=== PATIENT | female | born 1965 | race Asian ===

== ENCOUNTER → 2016-07-06 | Outpatient (CLI) | payer MEDICAID | LOC: FIMAGING 11:59 | PROVIDERS: ATTEND Nurse Practitioner Women's Health | DX: Z12.31 Encounter for screening mammogram for malignant neoplasm of breast (principal) | CPT/HCPCS: G0202 ==

== ENCOUNTER 2016-09-11 16:02 | Emergency (ER) | payer MEDICAID ==
[2016-09-11 16:06] VITALS: RESP 16
--- NOTE | 2016-09-11 16:16 | CPEKG ---
Heart Rate: 97 RR Interval: 619 P-R Interval: 176 QRSD Interval: 92 QT Interval: 348 QTC Interval: 442 P [place]: 42 QRS [place]: 32 T Wave [place]: 13 EKG Severity - NORMAL ECG - EKG Impression: SINUS RHYTHM Electronically Signed By: Sweta Singh 11-Sep-2016 21:08:37
--- NOTE | 2016-09-11 16:22 | EDPHY ---
H & P Time Seen by Provider: 09/11/16 16:11 HPI/ROS: CHIEF COMPLAINT: palpitations HISTORY OF PRESENT ILLNESS: The patient is a 51-year-old female presenting with palpitations that started this morning. The patient has experienced three episodes of rapid heart rate today. The first episode occurred while the patient was driving, it lasted for about 1 minute and resolved on its own. The other two episodes developed while at rest. All three episodes started suddenly and stopped suddenly. The patient has never experienced a rapid heart rate in the past. She states it feels like she just ran really fast. She denies chest pain, nausea, or diaphoresis. She notes some weight gain recently. No changes in medications. She has a slight cough that has been ongoing for a few months. REVIEW OF SYSTEMS: A comprehensive 10 point review of systems is otherwise negative aside from elements mentioned in the history of present illness. Past Medical/Surgical History: Diabetes Social History: Nonsmoker. No alcohol. Smoking Status: Never smoked Physical Exam: General Appearance: Alert, pleasant Eyes: Pupils equal and round, no conjunctival pallor or injection ENT, Mouth: Mucous membranes moist Neck: Normal inspection Respiratory: Lungs are clear to auscultation Cardiovascular: Regular rate and rhythm, no murmur Gastrointestinal: Abdomen is soft and non-tender Neurological: A&O, nonfocal, normal gait Skin: Warm and dry, no rash Extremities: Nontender, no pedal edema Psychiatric: Mood and affect normal Constitutional: Initial Vital Signs Temperature (C) 36.8 C 09/11/16 16:04 Heart Rate 92 09/11/16 16:04 Respiratory Rate 16 09/11/16 16:04 Blood Pressure 142/88 H 09/11/16 16:04 O2 Sat (%) 94 09/11/16 16:04 O2 Delivery Mode Room Air Allergies/Adverse Reactions: No Known Allergies Allergy (Verified 01/09/16 19:18) Home Medications: Medication Instructions Recorded Levothyroxine [Synthroid 50 mcg 50 mcg PO DAILY06 07/11/11 (RX)] Hydrocodone/APAP 5/325 [[place] 1 - 2 tab PO Q4 PRN #10 tab 08/18/13 5/325 (RX)] Ondansetron Odt [Zofran Odt 4 mg 4 mg PO Q4 PRN #10 tab 08/18/13 (RX)] Medical Decision Making - Diagnostics EKG Interpretation: EKG interpreted by me reveals normal sinus rhythm, normal axis, normal intervals , ST and T segments normal. Interpretation: normal EKG Imaging Results: Chest x-ray independently reviewed by me reveals no acute disease. Imaging: Discussed imaging studies w/ yardage caller Radiologist, I viewed and interpreted images myself ED Course/Re-evaluation: Patient presents with three episodes of palpitations that occurred while at rest today. Patient was placed on a monitor tech. Patient's HR has remained 89. EKG is normal, no ST or T segment changes. Plan to check chest x-ray, basic lab work, and Troponin. Chest x-ray is negative. Troponin is normal. threat monitoring analyst reveals normal sinus rhythm, no ectopy. Pt asymptomatic throughout her ED stay. Patient is safe for discharge home. Will f/u with PCP for Holter monitoring. Strict return precautions given. Differential Diagnosis: Differential diagnosis includes does not limited to SVT, atrial fibrillation, pulmonary embolism, acute coronary syndrome. - Data Points Laboratory Results: Laboratory Results 09/11/16 16:25 09/11/16 16:25 Departure - Departure Disposition: Home, Routine, Self-Care Clinical Impression: Palpitations Condition: Good Instructions: Palpitations (ED) Additional Instructions: Please call the ED in two hours for your thyroid test results. Return to the emergency department with chest pain, shortness of breath, extremity weakness or numbness, or worsening symptoms. Referrals: MAYRA BUTLER [Other] - As per Instructions Report Scribed for: Sweta Singh Report Scribed by: Sarita Regalado Date of Report: 09/11/16 Time of Report: 16:18 Physician Review and Approval Statement: 09/11/16 16:18 Portions of this note were transcribed by a medical doctor md/medical director. I personally performed the history, physical exam, and medical decision-making; and confirmed the accuracy of the information in the transcribed note.
[2016-09-11 16:41] LABS: % IMMATURE GRANULYOCYTES 0.3 % (0.0-1.1); ABSOLUTE IMMATURE GRANULOCYTES 0.03 10^3/uL (0.00-0.10); ADD DIFF? NO; ADD MORPH? NO; ADD SCAN? NO; ATYPICAL LYMPHOCYTE FLAG 0 (0-99); FRAGMENT RBC FLAG 0 (0-99); LEFT SHIFT FLG 0 (0-99); LIPEMIA HEMOLYSIS FLAG 80 (0-99); MEAN CELL HEMOGLOBIN 27.4 pg (27.9-34.1); MEAN CELL HEMOGLOBIN CONCENTR. 33.3 g/dL (32.4-36.7); MEAN CELL VOLUME 82.2 fL (81.5-99.8); MEAN PLATELET VOLUME 9.7 fL (8.7-11.7); PLATELET CLUMPS FLAG 0 (0-99); PLATELET COUNT 262 10^3/uL (150-400); RED BLOOD CELL COUNT 5.11 10^6/uL (4.18-5.33); RED CELL DISTRIBUTION WIDTH 12.3 % (11.5-15.2)
[2016-09-11 16:46] LABS: ANION GAP 14 mEq/L (8-16); CALCIUM 9.5 mg/dL (8.5-10.4); CARBON DIOXIDE 22 mEq/l (22-31); CHLORIDE 108 mEq/L (97-110); CREATININE 0.7 mg/dL (0.6-1.0); GLOMERULAR FILTRATION RATE > 60; GLUCOSE 164 mg/dL (70-100); POTASSIUM 4.3 mEq/L (3.5-5.2); SODIUM 144 mEq/L (134-144)
[2016-09-11 17:26] VITALS: BP 118/75; PULSE 85; TEMP 98.6; O2SAT 93
== END 2016-09-11 17:28 | disposition home or self-care (01) ==
DX: R00.2 Palpitations (principal); E11.9 Type 2 diabetes mellitus without complications